=== PATIENT | male | born 1970 | race African-American/Black ===

== ENCOUNTER 2017-05-16 21:56 | Emergency (ER) | payer OTHER ==
[~2017-05-16] VITALS: Ht 172.7 cm; Wt 94.7 kg
[2017-05-16 22:43] LABS: HEMATOCRIT 41.8 % (38.0-50.0); HEMOGLOBIN 14.2 G/DL (12.5-16.6); MCH 29.5 PG (29.0-34.0); MCV 86.7 FL (86-99); PLATELET COUNT 213 K/uL (156-360); RBC DIS.WIDTH-CV 12.2 % (11.8-14.6); RBC DIS.WIDTH-SD 39.1 % (39-53); RED BLOOD COUNT 4.82 M/uL (4.00-5.50); WHITE BLOOD COUNT 4.8 K/uL (4.1-10.2)
[2017-05-16 23:03] LABS: CHLORIDE 102 mEq/L (99-109); POTASSIUM 3.5 mEq/L (3.7-5.4); SODIUM 136 mEq/L (136-147)
[2017-05-16 23:05] LABS: GLUCOSE 148 mg/dL (70-99)
[2017-05-16 23:09] LABS: CREATININE 1.2 mg/dL (0.6-1.3); GFR ESTIMATE (CALCULATED) > 59 mL/min/ (58.99-99999)
[2017-05-16 23:10] LABS: UREA NITROGEN (BUN) 9 mg/dL (9-23)
[2017-05-17 00:55] VITALS: BP 163/101
== END 2017-05-17 00:55 | disposition home or self-care (01) ==
LOC: EME 21:56
DX: J06.9 Acute upper respiratory infection, unspecified (principal); Z88.0 Allergy status to penicillin; Z88.5 Allergy status to narcotic agent
CPT/HCPCS: 71020; 80048; 85027; 99281; 99284